=== PATIENT | female | born 1950 | race African-American/Black ===

== ENCOUNTER 2018-03-23 15:55 | Inpatient (IN) | payer MEDICARE, MEDICAID ==
[~2018-03-23] VITALS: Ht 162.6 cm; Wt 84.6 kg
[~2018-03-23 15:55] MED LIST: ASCO500C6 PO; GLIM2TAB2 PO; INSU3INS6 SUBCUT; KLUD20 PO; SERT50TA PO; TRAZ-129 PO
[2018-03-23 20:00] VITALS: BP 111/65
[2018-03-23] MEDS ORDERED: HYDROCODONE/ACETAMINOPHEN 5/325MG TABLET PO PRN (20:00)
[2018-03-23] MEDS ORDERED: POLYETHYLENE GLYCOL 3350 (17GM) 1 DOSE PACK PO PRN (20:00)
[2018-03-23] MEDS ORDERED: IPRATROPIUM/ALBUTEROL 0.5-3(2.5)MG/3ML NEB HHN PRN (20:00)
[2018-03-23] MEDS: CARVEDILOL 25MG TABLET PO SCH (21:00)
[2018-03-23 22:00] VITALS: BP 105/69
[2018-03-23] MEDS ORDERED: INSULIN GLARGINE UD 100 UNITS/ML SYR SUBCUT SCH ×2 (22:00→23:30)
[2018-03-23] MEDS: BLOOD SUGAR DIAGNOSTIC STRIP TEST SCH (22:02)
[2018-03-23] MEDS ORDERED: SACU1TAB7 MT (22:13)
[2018-03-23] MEDS ORDERED: COR25 MT (22:13)
[2018-03-24] MEDS: BLOOD SUGAR DIAGNOSTIC STRIP TEST SCH ×5 (06:52→21:35)
[2018-03-24 07:00] LABS: BASOPHILS % 2.1 % (0.0-2.0); HEMOGLOBIN. 11.5 g/dL (12.0-16.0); LYMPHOCYTES % 29.8 % (20.0-50.0); MEAN CORPUSCULAR HEMOGLOBIN 27.5 pg (28.0-32.0); MEAN CORPUSCULAR VOLUME 81.4 fL (81.0-99.0); MEAN PLATELET VOLUME 7.9 fl (7.4-10.4); MONOCYTES % 13.9 % (2.0-8.0); NEUTROPHILS % 44.2 % (40.0-76.0); PLATELET 185 x1000/uL (130-400); RED BLOOD CELL COUNT 4.18 mill/uL (4.2-5.4); RED CELL DISTRIBUTION WIDTH 19.9 % (11.6-14.6)
[2018-03-24] MEDS ORDERED: INSULIN REGULAR (HUMULIN R) 300UNITS/3ML SUBCUT SCH (07:00)
[2018-03-24 07:34] LABS: CHLORIDE 115 mEq/L (98-107)
[2018-03-24 07:41] LABS: PHOSPHORUS 3.1 mg/dL (2.5-4.9)
[2018-03-24 08:00] VITALS: BP 117/71
[2018-03-24] MEDS: INSULIN LISPRO 100 UNITS/ML SUBCUT SCH ×4 (09:00→21:00)
[2018-03-24] MEDS: POLYETHYLENE GLYCOL 3350 (17GM) 1 DOSE PACK PO SCH (09:00)
[2018-03-24] MEDS ORDERED: LOSARTAN POTASSIUM 25 MG TABLET PO SCH (09:00)
[2018-03-24] MEDS ORDERED: MAGNESIUM 2 G PREMIX 50 ML IV SCH (09:00)
[2018-03-24] MEDS ORDERED: LISINOPRIL 2.5MG TABLET PO SCH (09:00)
[2018-03-24] MEDS: ASPIRIN 81MG TABLET PO SCH (09:53)
[2018-03-24] MEDS: FUROSEMIDE 40MG TABLET PO SCH (09:53)
[2018-03-24] MEDS: SPIRONOLACTONE 25MG TABLET PO SCH (09:54)
[2018-03-24] MEDS ORDERED: INSULIN GLARGINE UD 100 UNITS/ML SYR SUBCUT SCH ×3 (10:00→22:00)
[2018-03-24] MEDS: CARVEDILOL 25MG TABLET PO SCH ×2 (11:55→21:00)
[2018-03-24] MEDS ORDERED: ACETAMINOPHEN 325MG TABLET PO PRN (14:00)
[2018-03-24] MEDS ORDERED: MAGNESIUM/ALUMINUM HYDROXIDE/SIMETHICONE 30ML UDC PO PRN (14:00)
[2018-03-24] MEDS ORDERED: ONDANSETRON HCL 4MG/2ML VIAL IV PRN (14:00)
[2018-03-24] MEDS ORDERED: OMEPRAZOLE 20MG CAPSULE EXTENDED RELEASE PO SCH (14:30)
[2018-03-24] MEDS: MINERAL OIL/PETROLATUM,WHITE CREAM 113GM JAR TOP SCH ×2 (17:00→20:04)
[2018-03-24 20:00] VITALS: BP 118/72
[2018-03-24] MEDS: OMEPRAZOLE 20MG CAPSULE EXTENDED RELEASE PO SCH (20:00)
[2018-03-24 22:44] LABS: CLARITY URINE CLEAR (CLEAR); COLOR URINE YELLOW (YELLOW); KETONES URINE NEGATIVE (NEGATIVE); LEUKOCYTE ESTERASE URINE NEGATIVE (NEGATIVE); NITRITE URINE NEGATIVE (NEGATIVE); OCCULT BLOOD URINE 3+ (NEGATIVE); PROTEIN URINE NEGATIVE (NEGATIVE)
[2018-03-25] MEDS: BLOOD SUGAR DIAGNOSTIC STRIP TEST SCH ×4 (06:15→21:43)
[2018-03-25] MEDS: OMEPRAZOLE 20MG CAPSULE EXTENDED RELEASE PO SCH (06:16)
[2018-03-25 07:04] LABS: HEMATOCRIT. 35.8 % (36.0-48.0); MEAN CORPUSCULAR HEMOGLOBIN 27.4 pg (28.0-32.0); MEAN CORPUSCULAR VOLUME 81.5 fL (81.0-99.0); PLATELET 188 x1000/uL (130-400); RED CELL DISTRIBUTION WIDTH 19.8 % (11.6-14.6)
[2018-03-25 07:16] LABS: PHOSPHORUS 3.5 mg/dL (2.5-4.9)
[2018-03-25 08:00] VITALS: BP 111/66
[2018-03-25] MEDS: FUROSEMIDE 40MG TABLET PO SCH (08:58)
[2018-03-25] MEDS: ASPIRIN 81MG TABLET PO SCH (08:59)
[2018-03-25] MEDS: POLYETHYLENE GLYCOL 3350 (17GM) 1 DOSE PACK PO SCH (09:00)
[2018-03-25] MEDS: SPIRONOLACTONE 25MG TABLET PO SCH (09:02)
[2018-03-25] MEDS: CARVEDILOL 25MG TABLET PO SCH ×2 (09:03→21:00)
[2018-03-25] MEDS: INSULIN LISPRO 100 UNITS/ML SUBCUT SCH ×4 (09:10→21:00)
[2018-03-25 09:13] LABS: PLATELET ESTIMATE NORMAL
[2018-03-25] MEDS: MINERAL OIL/PETROLATUM,WHITE CREAM 113GM JAR TOP SCH ×2 (10:06→17:24)
[2018-03-25] MEDS: SIMETHICONE 80MG TABLET CHEW PO SCH (17:00)
[2018-03-25 20:00] VITALS: BP 115/71
[2018-03-25] MEDS: HYDROCORTISONE ACETATE 25MG SUPP PR SCH (21:44)
[2018-03-25] MEDS: ENTRESTO PO SCH (21:45)
[2018-03-25] MEDS: DIPHENHYDRAMINE 25MG CAPSULE PO PRN (23:04)
[2018-03-25] MEDS: INSULIN GLARGINE UD 100 UNITS/ML SYR SUBCUT SCH (23:04)
[2018-03-26] MEDS: BLOOD SUGAR DIAGNOSTIC STRIP TEST SCH ×4 (06:46→21:20)
[2018-03-26] MEDS: INSULIN LISPRO 100 UNITS/ML SUBCUT SCH ×4 (06:46→21:00)
[2018-03-26 07:26] LABS: HEMATOCRIT. 34.6 % (36.0-48.0); HEMOGLOBIN. 11.7 g/dL (12.0-16.0); MEAN CORPUSCULAR HEMOGLOBIN 27.4 pg (28.0-32.0); MEAN CORPUSCULAR VOLUME 80.9 fL (81.0-99.0); MEAN PLATELET VOLUME 8.1 fl (7.4-10.4); PLATELET 192 x1000/uL (130-400); RED BLOOD CELL COUNT 4.28 mill/uL (4.2-5.4); RED CELL DISTRIBUTION WIDTH 20.3 % (11.6-14.6)
[2018-03-26 07:46] LABS: PHOSPHORUS 3.2 mg/dL (2.5-4.9)
[2018-03-26 08:00] VITALS: BP 113/72
[2018-03-26] MEDS: POLYETHYLENE GLYCOL 3350 (17GM) 1 DOSE PACK PO SCH (08:36)
[2018-03-26] MEDS: FUROSEMIDE 40MG TABLET PO SCH (08:37)
[2018-03-26] MEDS: ASPIRIN 81MG TABLET PO SCH (08:37)
[2018-03-26] MEDS: ENTRESTO PO SCH ×2 (08:39→20:54)
[2018-03-26] MEDS: SIMETHICONE 80MG TABLET CHEW PO SCH ×2 (08:41→18:01)
[2018-03-26] MEDS: SPIRONOLACTONE 25MG TABLET PO SCH (08:41)
[2018-03-26] MEDS: HYDROCORTISONE ACETATE 25MG SUPP PR SCH ×2 (08:42→20:55)
[2018-03-26] MEDS: CARVEDILOL 25MG TABLET PO SCH ×2 (08:42→20:55)
[2018-03-26] MEDS: MINERAL OIL/PETROLATUM,WHITE CREAM 113GM JAR TOP SCH ×2 (08:45→18:02)
[2018-03-26] MEDS: INSULIN GLARGINE UD 100 UNITS/ML SYR SUBCUT SCH ×2 (11:17→21:25)
[2018-03-26 14:57] LABS: PLATELET ESTIMATE NORMAL
[2018-03-26 20:00] VITALS: BP 115/64
[2018-03-27] MEDS: BLOOD SUGAR DIAGNOSTIC STRIP TEST SCH ×4 (06:22→21:09)
[2018-03-27] MEDS: INSULIN LISPRO 100 UNITS/ML SUBCUT SCH ×4 (06:40→21:00)
[2018-03-27 07:50] LABS: HEMATOCRIT. 34.8 % (36.0-48.0); HEMOGLOBIN. 11.6 g/dL (12.0-16.0); MEAN CORPUSCULAR HEMOGLOBIN 27.1 pg (28.0-32.0); MEAN CORPUSCULAR VOLUME 81.3 fL (81.0-99.0); MEAN PLATELET VOLUME 7.8 fl (7.4-10.4); PLATELET 200 x1000/uL (130-400); RED BLOOD CELL COUNT 4.28 mill/uL (4.2-5.4); RED CELL DISTRIBUTION WIDTH 20.1 % (11.6-14.6)
[2018-03-27 08:00] VITALS: BP 125/64
[2018-03-27 08:06] LABS: CHLORIDE 111 mEq/L (98-107)
[2018-03-27] MEDS: POLYETHYLENE GLYCOL 3350 (17GM) 1 DOSE PACK PO SCH (09:00)
[2018-03-27] MEDS: SIMETHICONE 80MG TABLET CHEW PO SCH ×3 (09:00→17:00)
[2018-03-27] MEDS: HYDROCORTISONE ACETATE 25MG SUPP PR SCH ×2 (09:00→21:00)
[2018-03-27] MEDS: CARVEDILOL 25MG TABLET PO SCH ×2 (09:34→21:02)
[2018-03-27] MEDS: ASPIRIN 81MG TABLET PO SCH (09:34)
[2018-03-27] MEDS: SPIRONOLACTONE 25MG TABLET PO SCH (09:35)
[2018-03-27] MEDS: FUROSEMIDE 40MG TABLET PO SCH (09:35)
[2018-03-27] MEDS: ENTRESTO PO SCH ×2 (09:37→21:02)
[2018-03-27] MEDS: MINERAL OIL/PETROLATUM,WHITE CREAM 113GM JAR TOP SCH ×2 (09:38→18:19)
[2018-03-27] MEDS: INSULIN GLARGINE UD 100 UNITS/ML SYR SUBCUT SCH ×2 (10:00→21:20)
[2018-03-27 12:12] LABS: PLATELET ESTIMATE NORMAL
[2018-03-27 20:00] VITALS: BP 126/72
[2018-03-28] MEDS: BLOOD SUGAR DIAGNOSTIC STRIP TEST SCH ×4 (06:15→21:00)
[2018-03-28] MEDS: INSULIN LISPRO 100 UNITS/ML SUBCUT SCH ×4 (06:42→21:00)
[2018-03-28 07:33] LABS: HEMATOCRIT. 34.3 % (36.0-48.0); HEMOGLOBIN. 11.6 g/dL (12.0-16.0); MEAN CORPUSCULAR HEMOGLOBIN 27.4 pg (28.0-32.0); MEAN CORPUSCULAR VOLUME 81.1 fL (81.0-99.0); MEAN PLATELET VOLUME 8.1 fl (7.4-10.4); PLATELET 198 x1000/uL (130-400); RED BLOOD CELL COUNT 4.23 mill/uL (4.2-5.4); RED CELL DISTRIBUTION WIDTH 20.3 % (11.6-14.6)
[2018-03-28 07:50] LABS: PHOSPHORUS 3.1 mg/dL (2.5-4.9)
[2018-03-28 08:00] VITALS: BP 127/71
[2018-03-28] MEDS ORDERED: POLYETHYLENE GLYCOL 3350 (17GM) 1 DOSE PACK PO PRN (08:45)
[2018-03-28] MEDS: SIMETHICONE 80MG TABLET CHEW PO SCH ×2 (09:00→16:24)
[2018-03-28] MEDS: HYDROCORTISONE ACETATE 25MG SUPP PR SCH ×2 (09:00→21:00)
[2018-03-28] MEDS ORDERED: FUROSEMIDE 20MG TABLET PO SCH (09:00)
[2018-03-28] MEDS ORDERED: POTASSIUM CHLORIDE 20MEQ TABLET SR PO SCH (09:00)
[2018-03-28] MEDS: MINERAL OIL/PETROLATUM,WHITE CREAM 113GM JAR TOP SCH ×2 (09:24→16:24)
[2018-03-28] MEDS: ENTRESTO PO SCH ×2 (09:24→22:34)
[2018-03-28] MEDS: CARVEDILOL 25MG TABLET PO SCH ×2 (09:25→21:00)
[2018-03-28] MEDS: SPIRONOLACTONE 25MG TABLET PO SCH (09:26)
[2018-03-28] MEDS: ASPIRIN 81MG TABLET PO SCH (09:26)
[2018-03-28] MEDS: INSULIN GLARGINE UD 100 UNITS/ML SYR SUBCUT SCH (09:37)
[2018-03-28] MEDS ORDERED: FUROSEMIDE 40MG TABLET PO SCH (10:33)
[2018-03-28 11:52] LABS: PLATELET ESTIMATE NORMAL
[2018-03-28 20:00] VITALS: BP 112/68
[2018-03-28] MEDS ORDERED: INSULIN GLARGINE UD 100 UNITS/ML SYR SUBCUT SCH (22:00)
[2018-03-29] MEDS: BLOOD SUGAR DIAGNOSTIC STRIP TEST SCH ×4 (06:45→21:00)
[2018-03-29] MEDS: INSULIN LISPRO 100 UNITS/ML SUBCUT SCH ×4 (06:46→21:00)
[2018-03-29 08:00] VITALS: BP 115/70
[2018-03-29] MEDS: HYDROCORTISONE ACETATE 25MG SUPP PR SCH ×2 (09:00→21:00)
[2018-03-29] MEDS: MINERAL OIL/PETROLATUM,WHITE CREAM 113GM JAR TOP SCH ×2 (09:00→19:35)
[2018-03-29] MEDS: SIMETHICONE 80MG TABLET CHEW PO SCH ×2 (09:00→17:00)
[2018-03-29] MEDS: INSULIN GLARGINE UD 100 UNITS/ML SYR SUBCUT SCH (10:00)
[2018-03-29] MEDS: ENTRESTO PO SCH ×2 (10:28→22:20)
[2018-03-29] MEDS: SPIRONOLACTONE 25MG TABLET PO SCH (10:30)
[2018-03-29] MEDS: ASPIRIN 81MG TABLET PO SCH (10:30)
[2018-03-29] MEDS: CARVEDILOL 25MG TABLET PO SCH ×2 (10:31→22:19)
[2018-03-29] MEDS: FUROSEMIDE 20MG TABLET PO SCH (10:33)
[2018-03-29 20:00] VITALS: BP 103/59
[2018-03-30] MEDS: BLOOD SUGAR DIAGNOSTIC STRIP TEST SCH ×4 (05:50→21:42)
[2018-03-30 07:39] LABS: HEMATOCRIT. 34.5 % (36.0-48.0); HEMOGLOBIN. 11.5 g/dL (12.0-16.0); MEAN CORPUSCULAR HEMOGLOBIN 27.1 pg (28.0-32.0); MEAN CORPUSCULAR VOLUME 81.3 fL (81.0-99.0); MEAN PLATELET VOLUME 8.2 fl (7.4-10.4); PLATELET 195 x1000/uL (130-400); RED BLOOD CELL COUNT 4.24 mill/uL (4.2-5.4); RED CELL DISTRIBUTION WIDTH 20.4 % (11.6-14.6)
[2018-03-30 08:00] VITALS: BP 128/85
[2018-03-30] MEDS: ENTRESTO PO SCH ×2 (08:56→21:43)
[2018-03-30] MEDS: FUROSEMIDE 20MG TABLET PO SCH (08:57)
[2018-03-30] MEDS: CARVEDILOL 25MG TABLET PO SCH ×2 (08:58→21:00)
[2018-03-30] MEDS: SPIRONOLACTONE 25MG TABLET PO SCH (08:59)
[2018-03-30] MEDS: MINERAL OIL/PETROLATUM,WHITE CREAM 113GM JAR TOP SCH ×2 (08:59→20:11)
[2018-03-30] MEDS: ASPIRIN 81MG TABLET PO SCH (09:00)
[2018-03-30] MEDS: SIMETHICONE 80MG TABLET CHEW PO SCH (09:00)
[2018-03-30] MEDS: INSULIN LISPRO 100 UNITS/ML SUBCUT SCH ×4 (09:00→21:00)
[2018-03-30] MEDS: HYDROCORTISONE ACETATE 25MG SUPP PR SCH (09:00)
[2018-03-30] MEDS ORDERED: HYDROCORTISONE ACETATE 25MG SUPP PR PRN (10:00)
[2018-03-30] MEDS ORDERED: SIMETHICONE 80MG TABLET CHEW PO PRN (10:00)
[2018-03-30] MEDS: INSULIN GLARGINE UD 100 UNITS/ML SYR SUBCUT SCH (10:44)
[2018-03-30] MEDS: HYDROCODONE/ACETAMINOPHEN 5/325MG TABLET PO PRN (12:51)
[2018-03-30 20:00] VITALS: BP 110/68
[2018-03-30 23:00] LABS: PLATELET ESTIMATE NORMAL
[2018-03-31] MEDS: BLOOD SUGAR DIAGNOSTIC STRIP TEST SCH ×4 (06:30→20:38)
[2018-03-31 08:00] VITALS: BP 112/69
[2018-03-31] MEDS: FUROSEMIDE 20MG TABLET PO SCH (09:46)
[2018-03-31] MEDS: CARVEDILOL 25MG TABLET PO SCH ×2 (09:46→20:38)
[2018-03-31] MEDS: ENTRESTO PO SCH ×2 (09:47→20:38)
[2018-03-31] MEDS: SPIRONOLACTONE 25MG TABLET PO SCH (09:47)
[2018-03-31] MEDS: ASPIRIN 81MG TABLET PO SCH ×2 (09:47→09:56)
[2018-03-31] MEDS: MINERAL OIL/PETROLATUM,WHITE CREAM 113GM JAR TOP SCH ×2 (09:48→16:46)
[2018-03-31] MEDS: INSULIN LISPRO 100 UNITS/ML SUBCUT SCH ×4 (09:51→20:38)
[2018-03-31] MEDS: INSULIN GLARGINE UD 100 UNITS/ML SYR SUBCUT SCH ×2 (10:35→10:43)
[2018-03-31 20:00] VITALS: BP 125/74
[2018-04-01] MEDS: BLOOD SUGAR DIAGNOSTIC STRIP TEST SCH ×4 (05:39→21:09)
[2018-04-01] MEDS: INSULIN LISPRO 100 UNITS/ML SUBCUT SCH ×4 (05:39→21:00)
[2018-04-01 07:51] LABS: HEMATOCRIT. 33.9 % (36.0-48.0); HEMOGLOBIN. 11.4 g/dL (12.0-16.0); MEAN CORPUSCULAR HEMOGLOBIN 27.4 pg (28.0-32.0); MEAN CORPUSCULAR VOLUME 81.5 fL (81.0-99.0); PLATELET 195 x1000/uL (130-400); RED BLOOD CELL COUNT 4.16 mill/uL (4.2-5.4); RED CELL DISTRIBUTION WIDTH 20.6 % (11.6-14.6)
[2018-04-01 08:00] VITALS: BP 112/62
[2018-04-01] MEDS: MINERAL OIL/PETROLATUM,WHITE CREAM 113GM JAR TOP SCH ×2 (08:36→17:18)
[2018-04-01] MEDS: ENTRESTO PO SCH ×2 (08:36→21:52)
[2018-04-01] MEDS: FUROSEMIDE 20MG TABLET PO SCH (08:36)
[2018-04-01] MEDS: CARVEDILOL 25MG TABLET PO SCH ×2 (08:42→21:51)
[2018-04-01] MEDS: SPIRONOLACTONE 25MG TABLET PO SCH (08:42)
[2018-04-01 15:07] LABS: PLATELET ESTIMATE NORMAL
[2018-04-01] MEDS: HYDROCODONE/ACETAMINOPHEN 5/325MG TABLET PO PRN (15:16)
[2018-04-01 20:28] VITALS: BP 121/77
[2018-04-01] MEDS: DIPHENHYDRAMINE 25MG CAPSULE PO PRN (22:11)
[2018-04-02] MEDS: BLOOD SUGAR DIAGNOSTIC STRIP TEST SCH ×4 (06:21→21:09)
[2018-04-02] MEDS: INSULIN LISPRO 100 UNITS/ML SUBCUT SCH ×4 (06:21→21:00)
[2018-04-02 07:13] LABS: HEMOGLOBIN 11.4 g/dL (12.0-16.0); MEAN CORPUSCULAR HEMOGLOBIN 27.2 pg (28.0-32.0); PLATELET 193 x1000/uL (130-400); RED CELL DISTRIBUTION WIDTH 21.1 % (11.6-14.6)
[2018-04-02 08:34] VITALS: BP 114/69
[2018-04-02] MEDS: FUROSEMIDE 20MG TABLET PO SCH (08:41)
[2018-04-02] MEDS: SPIRONOLACTONE 25MG TABLET PO SCH (08:42)
[2018-04-02] MEDS: ASPIRIN 81MG TABLET PO SCH (08:42)
[2018-04-02] MEDS: CARVEDILOL 25MG TABLET PO SCH ×2 (08:43→21:00)
[2018-04-02] MEDS: MINERAL OIL/PETROLATUM,WHITE CREAM 113GM JAR TOP SCH ×2 (08:43→17:33)
[2018-04-02] MEDS: ENTRESTO PO SCH ×2 (08:44→21:14)
[2018-04-02] MEDS: INSULIN GLARGINE UD 100 UNITS/ML SYR SUBCUT SCH (11:06)
[2018-04-02 20:00] VITALS: BP 113/72
[2018-04-02] MEDS ORDERED: HEMORRHOIDAL SUPP PR SCH (21:00)
[2018-04-02] MEDS: HYDROCORTISONE 1% RECTAL CREAM 30GM PR PRN ×2 (21:14→21:16)
[2018-04-02] MEDS ORDERED: HYDROCODONE/ACETAMINOPHEN 5/325MG TABLET PO PRN (21:30)
[2018-04-03 08:00] VITALS: BP 104/67
[2018-04-03 08:52] LABS: HEMATOCRIT. 33.6 % (36.0-48.0); HEMOGLOBIN. 11.2 g/dL (12.0-16.0); MEAN CORPUSCULAR VOLUME 81.2 fL (81.0-99.0); MEAN PLATELET VOLUME 8.2 fl (7.4-10.4); PLATELET 197 x1000/uL (130-400); RED BLOOD CELL COUNT 4.14 mill/uL (4.2-5.4); RED CELL DISTRIBUTION WIDTH 20.8 % (11.6-14.6)
[2018-04-03] MEDS: INSULIN LISPRO 100 UNITS/ML SUBCUT SCH ×4 (09:00→20:55)
[2018-04-03] MEDS: ASPIRIN 81MG TABLET PO SCH (09:00)
[2018-04-03 09:27] LABS: CHLORIDE 108 mEq/L (98-107)
[2018-04-03] MEDS: MINERAL OIL/PETROLATUM,WHITE CREAM 113GM JAR TOP SCH ×2 (09:45→19:08)
[2018-04-03] MEDS: FUROSEMIDE 20MG TABLET PO SCH (09:45)
[2018-04-03] MEDS: SPIRONOLACTONE 25MG TABLET PO SCH (09:46)
[2018-04-03] MEDS: ENTRESTO PO SCH ×2 (09:48→20:52)
[2018-04-03] MEDS: CARVEDILOL 25MG TABLET PO SCH ×2 (09:52→20:52)
[2018-04-03] MEDS: INSULIN GLARGINE UD 100 UNITS/ML SYR SUBCUT SCH (10:00)
[2018-04-03 10:34] LABS: PLATELET ESTIMATE NORMAL
[2018-04-03] MEDS: BLOOD SUGAR DIAGNOSTIC STRIP TEST SCH ×3 (11:15→20:52)
[2018-04-03] MEDS: PHENYLEPHRINE/SHK LV/MO/PET,WH RECTAL OINT 30GM PR SCH ×2 (18:00→23:59)
[2018-04-03 20:00] VITALS: BP 104/60
[2018-04-04] MEDS: BLOOD SUGAR DIAGNOSTIC STRIP TEST SCH ×4 (05:42→21:59)
[2018-04-04] MEDS: PHENYLEPHRINE/SHK LV/MO/PET,WH RECTAL OINT 30GM PR SCH ×3 (05:43→18:54)
[2018-04-04 06:41] LABS: BASOPHILS % 2.4 % (0.0-2.0); EOSINOPHILS % 8.6 % (0.0-5.0); HEMATOCRIT. 33.8 % (36.0-48.0); HEMOGLOBIN. 11.3 g/dL (12.0-16.0); LYMPHOCYTES % 31.1 % (20.0-50.0); MEAN CORPUSCULAR HEMOGLOBIN 27.4 pg (28.0-32.0); MEAN CORPUSCULAR VOLUME 81.6 fL (81.0-99.0); MONOCYTES % 12.6 % (2.0-8.0); NEUTROPHILS % 45.3 % (40.0-76.0); PLATELET 198 x1000/uL (130-400); RED BLOOD CELL COUNT 4.14 mill/uL (4.2-5.4); RED CELL DISTRIBUTION WIDTH 21.1 % (11.6-14.6)
[2018-04-04 08:00] VITALS: BP 110/67
[2018-04-04] MEDS: CARVEDILOL 25MG TABLET PO SCH ×2 (09:00→21:00)
[2018-04-04] MEDS: ENTRESTO PO SCH ×2 (09:00→22:00)
[2018-04-04] MEDS: ASPIRIN 81MG TABLET PO SCH (09:00)
[2018-04-04] MEDS: SPIRONOLACTONE 25MG TABLET PO SCH (09:07)
[2018-04-04] MEDS: FUROSEMIDE 80MG TABLET PO SCH (09:08)
[2018-04-04] MEDS: MINERAL OIL/PETROLATUM,WHITE CREAM 113GM JAR TOP SCH ×2 (09:10→17:31)
[2018-04-04] MEDS: INSULIN LISPRO 100 UNITS/ML SUBCUT SCH ×4 (09:21→22:01)
[2018-04-04] MEDS: INSULIN GLARGINE UD 100 UNITS/ML SYR SUBCUT SCH (11:00)
[2018-04-04 20:00] VITALS: BP 118/68
[2018-04-05] MEDS: PHENYLEPHRINE/SHK LV/MO/PET,WH RECTAL OINT 30GM PR SCH ×3 (00:27→11:44)
[2018-04-05] MEDS: BLOOD SUGAR DIAGNOSTIC STRIP TEST SCH ×2 (05:48→11:44)
[2018-04-05 08:00] VITALS: BP 124/72
[2018-04-05] MEDS: CARVEDILOL 25MG TABLET PO SCH (08:32)
[2018-04-05] MEDS: FUROSEMIDE 80MG TABLET PO SCH (08:32)
[2018-04-05] MEDS: SPIRONOLACTONE 25MG TABLET PO SCH (08:33)
[2018-04-05] MEDS: ENTRESTO PO SCH (08:33)
[2018-04-05] MEDS: MINERAL OIL/PETROLATUM,WHITE CREAM 113GM JAR TOP SCH (08:35)
[2018-04-05] MEDS: ASPIRIN 81MG TABLET PO SCH (08:36)
[2018-04-05] MEDS: INSULIN LISPRO 100 UNITS/ML SUBCUT SCH ×2 (08:41→12:35)
[2018-04-05] MEDS: INSULIN GLARGINE UD 100 UNITS/ML SYR SUBCUT SCH (09:26)
[2018-04-05 13:12] VITALS: BP 124/72
== END 2018-04-05 15:00 | disposition home health service (06) | DRG 291 ==
PROVIDERS: ADMIT Psychiatry & Neurology Neurology; ATTEND Family Medicine Adult Medicine
DX: I13.0 Hypertensive heart and chronic kidney disease with heart failure and stage 1 through stage 4 chronic kidney disease, or unspecified chronic kidney disease (principal); I50.23 Acute on chronic systolic (congestive) heart failure; E43 Unspecified severe protein-calorie malnutrition; R18.8 Other ascites; I38 Endocarditis, valve unspecified; N17.9 Acute kidney failure, unspecified; E87.0 Hyperosmolality and hypernatremia; E11.22 Type 2 diabetes mellitus with diabetic chronic kidney disease; I27.20 Pulmonary hypertension, unspecified; G62.9 Polyneuropathy, unspecified; N18.9 Chronic kidney disease, unspecified; I25.10 Atherosclerotic heart disease of native coronary artery without angina pectoris; J44.9 Chronic obstructive pulmonary disease, unspecified; R53.1 Weakness; Z60.2 Problems related to living alone; Z95.810 Presence of automatic (implantable) cardiac defibrillator; Z79.899 Other long term (current) drug therapy; Z79.4 Long term (current) use of insulin; H54.8 Legal blindness, as defined in USA; K59.00 Constipation, unspecified; K64.9 Unspecified hemorrhoids; E83.42 Hypomagnesemia; D72.1 Eosinophilia; E78.5 Hyperlipidemia, unspecified; L29.9 Pruritus, unspecified; R14.0 Abdominal distension (gaseous); E11.42 Type 2 diabetes mellitus with diabetic polyneuropathy; K74.60 Unspecified cirrhosis of liver; R59.0 Localized enlarged lymph nodes; R19.7 Diarrhea, unspecified; M13.0 Polyarthritis, unspecified; I42.0 Dilated cardiomyopathy; D63.8 Anemia in other chronic diseases classified elsewhere; Z87.891 Personal history of nicotine dependence; Z82.49 Family history of ischemic heart disease and other diseases of the circulatory system; Z80.3 Family history of malignant neoplasm of breast; N18.3 Chronic kidney disease, stage 3 (moderate); F41.9 Anxiety disorder, unspecified; F32.9 Major depressive disorder, single episode, unspecified; Z68.32 Body mass index [BMI] 32.0-32.9, adult
CPT/HCPCS: 36415; 71045; 76857; 80048; 80053; 81003; 82962; 83735; 84100; 85025; 85027; 93005; 93306; 93970; 97110; 97112; 97116; 97162; 97167; 97530; 97535; J1815; J3475; J7050; Q0163

== ENCOUNTER 2018-09-11 18:40 | Inpatient (IN) | payer MEDICARE, MEDICAID ==
[~2018-09-11] VITALS: Ht 162.6 cm; Wt 86.2 kg
[~2018-09-11 18:40] MED LIST changes: -ASCO500C6 PO; +COR25 MT; -GLIM2TAB2 PO; -INSU3INS6 SUBCUT; -KLUD20 PO; +SACU1TAB7 MT; -SERT50TA PO; -TRAZ-129 PO
[2018-09-11 20:14] LABS: BASOPHILS % 1.3 % (0.0-2.0); EOSINOPHILS % 2.6 % (0.0-5.0); HEMATOCRIT. 37.1 % (36.0-48.0); HEMOGLOBIN. 12.6 g/dL (12.0-16.0); LYMPHOCYTES % 14.5 % (20.0-50.0); MEAN CORPUSCULAR HEMOGLOBIN 30.3 pg (28.0-32.0); MEAN CORPUSCULAR VOLUME 89.4 fL (81.0-99.0); MEAN PLATELET VOLUME 8.3 fl (7.4-10.4); MONOCYTES % 12.7 % (2.0-8.0); NEUTROPHILS % 68.9 % (40.0-76.0); PLATELET 142 x1000/uL (130-400); RED BLOOD CELL COUNT 4.15 mill/uL (4.2-5.4); RED CELL DISTRIBUTION WIDTH 18.1 % (11.6-14.6)
[2018-09-11 20:16] LABS: INR 1.5; PROTHROMBIN TIME 14.7 sec (9.1-11.1)
[2018-09-11 20:17] LABS: CHLORIDE 110 mEq/L (98-107)
[2018-09-11] MEDS ORDERED: NITROGLYCERIN 0.4MG TABLET SL SL ONE (21:15)
[2018-09-11] MEDS ORDERED: ASPIRIN 81MG TABLET PO ONE (21:15)
[2018-09-11] MEDS ORDERED: ACETAMINOPHEN 325MG TABLET PO PRN (21:30)
[2018-09-11] MEDS ORDERED: DIPHENHYDRAMINE 50MG/ML VIAL IV PRN (21:30)
[2018-09-11] MEDS ORDERED: DOCUSATE SODIUM 100MG CAPSULE PO PRN (21:30)
[2018-09-11] MEDS ORDERED: ONDANSETRON HCL 4MG/2ML INJ IV PRN (21:30)
[2018-09-11] MEDS ORDERED: CLONIDINE 0.1MG TABLET PO PRN (21:30)
[2018-09-11] MEDS ORDERED: LORAZEPAM 0.5MG TABLET PO PRN (21:30)
[2018-09-11] MEDS ORDERED: HYDROCODONE/ACETAMINOPHEN 10/325MG TABLET PO PRN (21:30)
[2018-09-11] MEDS ORDERED: IPRATROPIUM/ALBUTEROL 0.5-3(2.5)MG/3ML NEB INH PRN (21:30)
[2018-09-11] MEDS ORDERED: MAGNESIUM/ALUMINUM HYDROXIDE/SIMETHICONE 30ML UDC PO PRN (21:30)
[2018-09-11] MEDS ORDERED: HYDROCODONE/ACETAMINOPHEN 5/325MG TABLET PO PRN (21:30)
[2018-09-12] MEDS ORDERED: PHENYLEPHRINE/SHK LV/MO/PET,WH RECTAL OINT 28GM PR SCH
[2018-09-12 02:28] LABS: CLARITY URINE CLEAR (CLEAR); COLOR URINE YELLOW (YELLOW); KETONES URINE NEGATIVE (NEGATIVE); LEUKOCYTE ESTERASE URINE NEGATIVE (NEGATIVE); NITRITE URINE NEGATIVE (NEGATIVE); OCCULT BLOOD URINE NEGATIVE (NEGATIVE); PROTEIN URINE NEGATIVE (NEGATIVE)
[2018-09-12 04:09] LABS: BASOPHILS % 1.1 % (0.0-2.0); EOSINOPHILS % 2.7 % (0.0-5.0); HEMATOCRIT. 36.5 % (36.0-48.0); HEMOGLOBIN. 12.4 g/dL (12.0-16.0); MEAN CORPUSCULAR HEMOGLOBIN 30.3 pg (28.0-32.0); MEAN CORPUSCULAR VOLUME 89.5 fL (81.0-99.0); MEAN PLATELET VOLUME 8.2 fl (7.4-10.4); MONOCYTES % 13.2 % (2.0-8.0); PLATELET 136 x1000/uL (130-400); RED BLOOD CELL COUNT 4.08 mill/uL (4.2-5.4); RED CELL DISTRIBUTION WIDTH 17.9 % (11.6-14.6)
[2018-09-12 04:10] LABS: CHLORIDE 111 mEq/L (98-107)
[2018-09-12 04:16] LABS: LDL CHOLESTEROL 62 mg/dL (5-100); PHOSPHORUS 3.5 mg/dL (2.5-4.9)
[2018-09-12 04:19] LABS: HDL CHOLESTEROL 31 mg/dL (40-59)
[2018-09-12 04:22] LABS: T4 FREE 1.56 ng/dL (0.76-1.46)
[2018-09-12 15:33] LABS: HEPATITIS B SURFACE ANTIGEN NEGATIVE
[2018-09-12 16:03] LABS: HEPATITIS A AB IGM NEGATIVE (NEGATIVE)
[2018-09-12] MEDS ORDERED: DEXTROSE 50% WATER 50ML SYRINGE IV PRN (19:30)
[2018-09-12] MEDS ORDERED: BLOOD SUGAR DIAGNOSTIC STRIP TEST SCH (21:00)
[2018-09-12] MEDS: INSULIN LISPRO 100 UNITS/ML SUBCUT SCH (21:00)
[2018-09-12 21:25] VITALS: BP 118/74
[2018-09-12] MEDS ORDERED: CARVEDILOL 25MG TABLET PO NR (22:00)
[2018-09-12] MEDS ORDERED: FUROSEMIDE 40MG/4ML VIAL IVP SCH (22:01)
[2018-09-12] MEDS: SPIRONOLACTONE 25MG TABLET PO SCH (23:01)
[2018-09-13] VITALS: BP 118/64
[2018-09-13] MEDS ORDERED: FURO80TA87 PO (00:48)
[2018-09-13 04:00] VITALS: BP 123/78
[2018-09-13] MEDS: BLOOD SUGAR DIAGNOSTIC STRIP TEST SCH ×4 (06:32→21:30)
[2018-09-13] MEDS: INSULIN LISPRO 100 UNITS/ML SUBCUT SCH ×4 (07:50→21:54)
[2018-09-13 07:55] LABS: BASOPHILS % 1.1 % (0.0-2.0); EOSINOPHILS % 2.6 % (0.0-5.0); HEMATOCRIT. 35.5 % (36.0-48.0); LYMPHOCYTES % 15.8 % (20.0-50.0); MEAN CORPUSCULAR HEMOGLOBIN 30.2 pg (28.0-32.0); MONOCYTES % 14.7 % (2.0-8.0); NEUTROPHILS % 65.8 % (40.0-76.0); PLATELET 127 x1000/uL (130-400); RED BLOOD CELL COUNT 3.98 mill/uL (4.2-5.4); RED CELL DISTRIBUTION WIDTH 18.1 % (11.6-14.6)
[2018-09-13 08:00] VITALS: BP 115/60
[2018-09-13] MEDS: SACUBITRIL/VALSARTAN 49MG/51MG TABLET PO SCH ×3 (09:00→21:30)
[2018-09-13] MEDS: CARVEDILOL 3.125 MG TABLET PO SCH ×2 (10:22→21:30)
[2018-09-13] MEDS: FUROSEMIDE 40MG/4ML VIAL IVP SCH (10:22)
[2018-09-13] MEDS: SPIRONOLACTONE 25MG TABLET PO SCH (10:22)
[2018-09-13] MEDS: DOCUSATE SODIUM 100MG CAPSULE PO SCH ×2 (10:23→16:58)
[2018-09-13] MEDS: INSULIN GLARGINE UD 100 UNITS/ML SYR SUBCUT SCH (10:34)
[2018-09-13] MEDS ORDERED: LIDOCAINE HCL 1% 20ML VIAL (Pyxis) INJ ONE (11:26)
[2018-09-13] MEDS ORDERED: SODIUM BICARBONATE 4% (2.4MEQ) 5ML VIAL IV ONE (11:26)
[2018-09-13 14:07] VITALS: BP 126/67
[2018-09-13 15:46] LABS: CHLORIDE 111 mEq/L (98-107)
[2018-09-13 16:00] VITALS: BP 98/60
[2018-09-13 20:00] VITALS: BP 112/61
[2018-09-13] MEDS: GUAIFENESIN 200MG/10ML SUGAR FREE UDC PO PRN (22:25)
[2018-09-14 00:55] VITALS: BP 99/62
[2018-09-14 04:00] VITALS: BP 150/69
[2018-09-14] MEDS: BLOOD SUGAR DIAGNOSTIC STRIP TEST SCH ×4 (06:31→21:00)
[2018-09-14 06:37] LABS: HEMATOCRIT. 36.3 % (36.0-48.0); HEMOGLOBIN. 12.3 g/dL (12.0-16.0); MEAN CORPUSCULAR HEMOGLOBIN 30.3 pg (28.0-32.0); MEAN CORPUSCULAR VOLUME 89.5 fL (81.0-99.0); MEAN PLATELET VOLUME 8.2 fl (7.4-10.4); PLATELET 133 x1000/uL (130-400); RED BLOOD CELL COUNT 4.06 mill/uL (4.2-5.4); RED CELL DISTRIBUTION WIDTH 18.2 % (11.6-14.6)
[2018-09-14] MEDS: INSULIN LISPRO 100 UNITS/ML SUBCUT SCH ×4 (07:50→21:31)
[2018-09-14 08:00] VITALS: BP 114/64
[2018-09-14] MEDS: CARVEDILOL 3.125 MG TABLET PO SCH ×2 (08:57→21:29)
[2018-09-14] MEDS: DOCUSATE SODIUM 100MG CAPSULE PO SCH ×2 (09:00→17:00)
[2018-09-14] MEDS: FUROSEMIDE 40MG/4ML VIAL IVP SCH (09:03)
[2018-09-14] MEDS: SPIRONOLACTONE 25MG TABLET PO SCH (09:05)
[2018-09-14 12:01] VITALS: BP 98/61
[2018-09-14] MEDS: SACUBITRIL/VALSARTAN 49MG/51MG TABLET PO SCH (12:44)
[2018-09-14] MEDS: INSULIN GLARGINE UD 100 UNITS/ML SYR SUBCUT SCH (12:50)
[2018-09-14 16:35] VITALS: BP 117/66
[2018-09-14 19:49] LABS: PLATELET ESTIMATE NORMAL
[2018-09-14 20:00] VITALS: BP 115/67
[2018-09-15] VITALS (7 sets, daily range): BP systolic 111–136; BP diastolic 67–73
[2018-09-15] MEDS: GUAIFENESIN 200MG/10ML SUGAR FREE UDC PO PRN (00:24)
[2018-09-15] MEDS: SACUBITRIL/VALSARTAN 49MG/51MG TABLET PO SCH ×4 (00:24→23:15)
[2018-09-15 06:59] LABS: BASOPHILS % 1.6 % (0.0-2.0); EOSINOPHILS % 2.7 % (0.0-5.0); HEMATOCRIT. 37.3 % (36.0-48.0); HEMOGLOBIN. 12.5 g/dL (12.0-16.0); MEAN CORPUSCULAR HEMOGLOBIN 30.1 pg (28.0-32.0); MEAN CORPUSCULAR VOLUME 89.7 fL (81.0-99.0); MEAN PLATELET VOLUME 8.4 fl (7.4-10.4); MONOCYTES % 13.8 % (2.0-8.0); NEUTROPHILS % 63.9 % (40.0-76.0); PLATELET 137 x1000/uL (130-400); RED BLOOD CELL COUNT 4.16 mill/uL (4.2-5.4); RED CELL DISTRIBUTION WIDTH 17.8 % (11.6-14.6)
[2018-09-15 07:15] LABS: CHLORIDE 111 mEq/L (98-107)
[2018-09-15] MEDS: BLOOD SUGAR DIAGNOSTIC STRIP TEST SCH ×4 (07:20→21:03)
[2018-09-15 07:30] LABS: PHOSPHORUS 3.9 mg/dL (2.5-4.9)
[2018-09-15] MEDS: DOCUSATE SODIUM 100MG CAPSULE PO SCH ×2 (09:00→16:31)
[2018-09-15] MEDS: FUROSEMIDE 40MG/4ML VIAL IVP SCH (09:23)
[2018-09-15] MEDS: CARVEDILOL 3.125 MG TABLET PO SCH ×2 (09:23→21:00)
[2018-09-15] MEDS: SPIRONOLACTONE 25MG TABLET PO SCH (09:23)
[2018-09-15] MEDS: INSULIN LISPRO 100 UNITS/ML SUBCUT SCH ×4 (09:43→21:00)
[2018-09-15] MEDS: INSULIN GLARGINE UD 100 UNITS/ML SYR SUBCUT SCH (13:57)
[2018-09-16 04:00] VITALS: BP 146/71
[2018-09-16] MEDS: BLOOD SUGAR DIAGNOSTIC STRIP TEST SCH ×2 (06:50→12:49)
[2018-09-16] MEDS: INSULIN LISPRO 100 UNITS/ML SUBCUT SCH ×2 (06:55→12:59)
[2018-09-16 08:10] VITALS: BP 111/61
[2018-09-16] MEDS: DOCUSATE SODIUM 100MG CAPSULE PO SCH (08:40)
[2018-09-16] MEDS: SACUBITRIL/VALSARTAN 49MG/51MG TABLET PO SCH (08:41)
[2018-09-16] MEDS: FUROSEMIDE 40MG/4ML VIAL IVP SCH (08:41)
[2018-09-16] MEDS: SPIRONOLACTONE 25MG TABLET PO SCH (08:41)
[2018-09-16] MEDS: CARVEDILOL 3.125 MG TABLET PO SCH (08:42)
[2018-09-16 09:28] VITALS: BP 111/65
[2018-09-16] MEDS: INSULIN GLARGINE UD 100 UNITS/ML SYR SUBCUT SCH (10:00)
[2018-09-16 12:11] VITALS: BP 111/63
== END 2018-09-16 15:10 | DRG 291 ==
LOC: ER 18:40 → ENRESERV 09-12 19:43 → 6WST 09-12 21:56
PROVIDERS: ADMIT Emergency Medicine; ATTEND Emergency Medicine
PROC: 0W9G3ZZ Drainage of Peritoneal Cavity, Percutaneous Approach (ICD-10-PCS; principal; 2018-09-13)
DX: I13.0 Hypertensive heart and chronic kidney disease with heart failure and stage 1 through stage 4 chronic kidney disease, or unspecified chronic kidney disease (principal); J96.00 Acute respiratory failure, unspecified whether with hypoxia or hypercapnia; I50.23 Acute on chronic systolic (congestive) heart failure; D68.9 Coagulation defect, unspecified; N17.9 Acute kidney failure, unspecified; I42.0 Dilated cardiomyopathy; E11.22 Type 2 diabetes mellitus with diabetic chronic kidney disease; E11.65 Type 2 diabetes mellitus with hyperglycemia; E78.5 Hyperlipidemia, unspecified; H54.8 Legal blindness, as defined in USA; I27.20 Pulmonary hypertension, unspecified; J44.9 Chronic obstructive pulmonary disease, unspecified; K59.00 Constipation, unspecified; M13.0 Polyarthritis, unspecified; M71.22 Synovial cyst of popliteal space [Baker], left knee; N18.3 Chronic kidney disease, stage 3 (moderate); E87.70 Fluid overload, unspecified; J45.909 Unspecified asthma, uncomplicated; K70.31 Alcoholic cirrhosis of liver with ascites; K76.0 Fatty (change of) liver, not elsewhere classified; D72.819 Decreased white blood cell count, unspecified; H26.9 Unspecified cataract; Z80.3 Family history of malignant neoplasm of breast; Z82.49 Family history of ischemic heart disease and other diseases of the circulatory system; Z87.891 Personal history of nicotine dependence; Z95.810 Presence of automatic (implantable) cardiac defibrillator
CPT/HCPCS: 36415; 49083; 71045; 76700; 80048; 80061; 82570; 82962; 83735; 83880; 83935; 84100; 84300; 84439; 84443; 84484; 86705; 86709; 86803; 87340; 92523; 92610; 93005; 93970; 97116; 97162; 97166; 99284; 99291; C1893; J1815; J1940; J3490

== ENCOUNTER → 2018-11-03 | Day surgery (SDC) | payer MEDICARE, MEDICAID ==
[~2018-11-03] MED LIST changes: +FURO80TA87 PO; +LIDOCAINE HCL 1% 20ML VIAL (Pyxis) INJ ONE; +SODIUM BICARBONATE 4% (2.4MEQ) 5ML VIAL IV ONE
== END | disposition home or self-care (01) ==
LOC: RAD 10:30
PROVIDERS: ATTEND Specialist
DX: K74.60 Unspecified cirrhosis of liver (principal); I50.9 Heart failure, unspecified; I42.8 Other cardiomyopathies; E11.22 Type 2 diabetes mellitus with diabetic chronic kidney disease; N18.9 Chronic kidney disease, unspecified; J44.9 Chronic obstructive pulmonary disease, unspecified; I27.20 Pulmonary hypertension, unspecified
CPT/HCPCS: 49083; J3490

== ENCOUNTER 2018-11-26 17:41 | Inpatient (IN) | payer MEDICARE, MEDICAID ==
[~2018-11-26] VITALS: Ht 162.6 cm; Wt 104.0 kg
[~2018-11-26 17:41] MED LIST changes: -LIDOCAINE HCL 1% 20ML VIAL (Pyxis) INJ ONE; -SODIUM BICARBONATE 4% (2.4MEQ) 5ML VIAL IV ONE
[2018-11-26 20:36] LABS: HEMATOCRIT. 42.6 % (36.0-48.0); HEMOGLOBIN. 13.7 g/dL (12.0-16.0); MEAN CORPUSCULAR HEMOGLOBIN 29.1 pg (28.0-32.0); MEAN CORPUSCULAR VOLUME 90.3 fL (81.0-99.0); MEAN PLATELET VOLUME 8.8 fl (7.4-10.4); PLATELET 92 x1000/uL (130-400); RED BLOOD CELL COUNT 4.72 mill/uL (4.2-5.4); RED CELL DISTRIBUTION WIDTH 20.6 % (11.6-14.6)
[2018-11-26 20:43] LABS: CHLORIDE 120 mEq/L (98-107); INR 1.6; PROTHROMBIN TIME 15.7 sec (9.1-11.1)
[2018-11-26] MEDS ORDERED: ASPIRIN 300MG SUPP PR NR (21:00)
[2018-11-26 22:25] LABS: PLATELET ESTIMATE DECREASED
[2018-11-26] MEDS ORDERED: AZITHROMYCIN 500 MG in DEXT 5% WATER 250 ML IV SCH (22:30)
[2018-11-26] MEDS ORDERED: CEFTRIAXONE 1 G PREMIX 50 ML IV ONE (22:30)
[2018-11-26] MEDS ORDERED: DEXTROSE 50% WATER 50ML SYRINGE IV PRN (22:45)
[2018-11-26] MEDS ORDERED: IPRATROPIUM/ALBUTEROL 0.5-3(2.5)MG/3ML NEB INH PRN (22:45)
[2018-11-26] MEDS ORDERED: MAGNESIUM/ALUMINUM HYDROXIDE/SIMETHICONE 30ML UDC PO PRN (22:45)
[2018-11-26] MEDS ORDERED: LEVOFLOXACIN 500MG PREMIX 100 ML IV SCH (22:45)
[2018-11-26] MEDS ORDERED: ACETAMINOPHEN 325MG TABLET PO PRN (22:45)
[2018-11-26] MEDS ORDERED: CLONIDINE 0.1MG TABLET PO PRN (22:45)
[2018-11-26 23:02] LABS: CLARITY URINE CLEAR (CLEAR); COLOR URINE DARK YELLOW (YELLOW); KETONES URINE NEGATIVE (NEGATIVE); LEUKOCYTE ESTERASE URINE NEGATIVE (NEGATIVE); NITRITE URINE NEGATIVE (NEGATIVE); OCCULT BLOOD URINE 1+ (NEGATIVE); PROTEIN URINE NEGATIVE (NEGATIVE); SPECIFIC GRAVITY URINE 1.019 (1.005-1.030)
[2018-11-27] VITALS (9 sets, daily range): BP systolic 98–127; BP diastolic 58–76
[2018-11-27] MEDS ORDERED: LEVOFLOXACIN 500MG PREMIX 100 ML IV NR (03:30)
[2018-11-27 06:05] LABS: HEMATOCRIT. 40.6 % (36.0-48.0); HEMOGLOBIN. 13.2 g/dL (12.0-16.0); MEAN CORPUSCULAR HEMOGLOBIN 28.8 pg (28.0-32.0); MEAN CORPUSCULAR VOLUME 88.8 fL (81.0-99.0); MEAN PLATELET VOLUME 9.1 fl (7.4-10.4); PLATELET 94 x1000/uL (130-400); RED BLOOD CELL COUNT 4.57 mill/uL (4.2-5.4); RED CELL DISTRIBUTION WIDTH 20.1 % (11.6-14.6)
[2018-11-27 06:21] LABS: PHOSPHORUS 3.6 mg/dL (2.5-4.9)
[2018-11-27 06:26] LABS: T4 FREE 1.27 ng/dL (0.76-1.46)
[2018-11-27 07:14] LABS: NUCLEATED RED BLOOD CELLS 1 /100 WBC; PLATELET ESTIMATE DECREASED
[2018-11-27] MEDS ORDERED: DOCUSATE SODIUM 100MG CAPSULE PO SCH (09:00)
[2018-11-27] MEDS: BLOOD SUGAR DIAGNOSTIC STRIP TEST SCH ×3 (11:41→21:43)
[2018-11-27] MEDS: INSULIN LISPRO 100 UNITS/ML SUBCUT SCH ×3 (12:12→21:00)
[2018-11-27] MEDS: FUROSEMIDE 40MG/4ML VIAL IVP SCH (14:00)
[2018-11-27 14:29] LABS: BG BASE EXCESS -10.9 mmol/L (-2.0-2.0); BG CARBOXYHEMOGLOBIN 0.8 % (0.5-1.5); BG DEOXYHEMOGLOBIN 12.3 % (0.0-5.0); BG HCO3 ACT 14.8 mmol/L (22.0-26.0); BG METHEMOGLOBIN 0.3 % (0.0-1.5); BG OXYGEN SATURATION 87.6 % (92.0-98.5); BG OXYHEMOGLOBIN 86.6 % (94.0-97.0); BG PCO2 32.9 mmHg (35.0-45.0); BG PH 7.272 (7.350-7.450); BG PO2 56.8 mmHg (75.0-100.0); BG SAMPLE SITE RIGHT RADIAL; BG TOTAL HEMOGLOBIN 12.8 g/dL (12.0-18.0); BG VENT MODE MASK - VENTI
[2018-11-27] MEDS ORDERED: ENOXAPARIN 40MG/0.4ML SYR SUBCUT SCH (14:30)
[2018-11-27] MEDS: IPRATROPIUM/ALBUTEROL 0.5-3(2.5)MG/3ML NEB HHN SCH ×2 (15:57→21:25)
[2018-11-27 18:12] LABS: BG BASE EXCESS -10.3 mmol/L (-2.0-2.0); BG CARBOXYHEMOGLOBIN 0.5 % (0.5-1.5); BG METHEMOGLOBIN 0.1 % (0.0-1.5); BG OXYHEMOGLOBIN 96.4 % (94.0-97.0); BG PH 7.254 (7.350-7.450); BG PO2 106.1 mmHg (75.0-100.0); BG SAMPLE SITE RIGHT RADIAL; BG TOTAL HEMOGLOBIN 12.8 g/dL (12.0-18.0); BG VENT MODE MASK - NRB
[2018-11-27] MEDS: LACTULOSE 20G/30ML UDC PO SCH (21:43)
[2018-11-28] VITALS (18 sets, daily range): BP systolic 89–115; BP diastolic 54–71
[2018-11-28] MEDS: IPRATROPIUM/ALBUTEROL 0.5-3(2.5)MG/3ML NEB HHN SCH ×6 (00:39→20:30)
[2018-11-28] MEDS: LEVOFLOXACIN 250MG PREMIX 50 ML IV SCH (05:53)
[2018-11-28] MEDS: LACTULOSE 20G/30ML UDC PO SCH ×3 (05:54→21:13)
[2018-11-28 07:00] LABS: INR 1.6; PROTHROMBIN TIME 15.5 sec (9.1-11.1)
[2018-11-28 07:07] LABS: HEMATOCRIT. 38.5 % (36.0-48.0); HEMOGLOBIN. 12.6 g/dL (12.0-16.0); MEAN CORPUSCULAR VOLUME 88.4 fL (81.0-99.0); MEAN PLATELET VOLUME 8.7 fl (7.4-10.4); PLATELET 86 x1000/uL (130-400); RED BLOOD CELL COUNT 4.36 mill/uL (4.2-5.4); RED CELL DISTRIBUTION WIDTH 19.3 % (11.6-14.6)
[2018-11-28 07:10] LABS: CHLORIDE 121 mEq/L (98-107)
[2018-11-28 07:16] LABS: PHOSPHORUS 3.4 mg/dL (2.5-4.9)
[2018-11-28] MEDS: INSULIN LISPRO 100 UNITS/ML SUBCUT SCH ×2 (08:00→18:00)
[2018-11-28] MEDS: BLOOD SUGAR DIAGNOSTIC STRIP TEST SCH ×3 (08:22→18:52)
[2018-11-28] MEDS: FUROSEMIDE 40MG/4ML VIAL IVP SCH (08:39)
[2018-11-28] MEDS ORDERED: SPIRONOLACTONE 25MG TABLET PO SCH (10:00)
[2018-11-28] MEDS: METOLAZONE 2.5MG TABLET PO SCH (10:02)
[2018-11-28 11:51] LABS: PLATELET ESTIMATE DECREASED
[2018-11-28 12:34] LABS: T4 FREE 1.24 ng/dL (0.76-1.46)
[2018-11-28 13:03] LABS: VITAMIN B12 SERUM > 2000.0 pg/mL (211-911)
[2018-11-28] MEDS: PANTOPRAZOLE SODIUM 40 MG/VIAL IV SCH (13:19)
[2018-11-28 15:13] LABS: BG BASE EXCESS -7.4 mmol/L (-2.0-2.0); BG CARBOXYHEMOGLOBIN 0.7 % (0.5-1.5); BG DEOXYHEMOGLOBIN 6.7 % (0.0-5.0); BG FRACTION INSPIRED OXYGEN 100; BG HCO3 ACT 16.5 mmol/L (22.0-26.0); BG METHEMOGLOBIN 0.1 % (0.0-1.5); BG OXYGEN SATURATION 93.2 % (92.0-98.5); BG OXYHEMOGLOBIN 92.5 % (94.0-97.0); BG PCO2 28.9 mmHg (35.0-45.0); BG PH 7.374 (7.350-7.450); BG SAMPLE SITE RIGHT RADIAL; BG TOTAL HEMOGLOBIN 12.8 g/dL (12.0-18.0); BG VENT MODE MASK - NRB
[2018-11-28] MEDS: BUDESONIDE 0.5MG/2ML NEB HHN SCH (20:30)
[2018-11-28] MEDS ORDERED: AMLODIPINE 2.5MG TABLET PO SCH (21:00)
[2018-11-28] MEDS: RIFAXIMIN 550 MG TABLET PO SCH (21:13)
[2018-11-29] VITALS (17 sets, daily range): BP systolic 98–115; BP diastolic 55–69
[2018-11-29] MEDS: IPRATROPIUM/ALBUTEROL 0.5-3(2.5)MG/3ML NEB HHN SCH ×6 (00:14→20:38)
[2018-11-29] MEDS: DEXTROSE 50% WATER 50ML SYRINGE IV PRN ×3 (00:49→18:43)
[2018-11-29] MEDS: BLOOD SUGAR DIAGNOSTIC STRIP TEST SCH ×4 (00:53→18:39)
[2018-11-29] MEDS: LEVOFLOXACIN 250MG PREMIX 50 ML IV SCH (04:56)
[2018-11-29] MEDS: INSULIN LISPRO 100 UNITS/ML SUBCUT SCH ×4 (06:00→18:00)
[2018-11-29] MEDS: LACTULOSE 20G/30ML UDC PO SCH ×4 (06:49→22:04)
[2018-11-29 06:53] LABS: HEMATOCRIT. 37.9 % (36.0-48.0); HEMOGLOBIN. 12.4 g/dL (12.0-16.0); MEAN CORPUSCULAR HEMOGLOBIN 29.1 pg (28.0-32.0); MEAN CORPUSCULAR VOLUME 88.7 fL (81.0-99.0); MEAN PLATELET VOLUME 9.1 fl (7.4-10.4); PLATELET 92 x1000/uL (130-400); RED BLOOD CELL COUNT 4.27 mill/uL (4.2-5.4); RED CELL DISTRIBUTION WIDTH 18.9 % (11.6-14.6)
[2018-11-29 07:39] LABS: PHOSPHORUS 3.3 mg/dL (2.5-4.9)
[2018-11-29] MEDS: RIFAXIMIN 550 MG TABLET PO SCH ×2 (09:00→22:04)
[2018-11-29] MEDS: METOLAZONE 2.5MG TABLET PO SCH (09:00)
[2018-11-29] MEDS ORDERED: FUROSEMIDE 20MG/2ML VIAL IV SCH (09:00)
[2018-11-29] MEDS: BUDESONIDE 0.5MG/2ML NEB HHN SCH ×2 (09:20→20:38)
[2018-11-29] MEDS: PANTOPRAZOLE SODIUM 40 MG/VIAL IV SCH (10:14)
[2018-11-29] MEDS ORDERED: ONDANSETRON HCL 4MG/2ML INJ IV PRN (11:45)
[2018-11-29] MEDS: LACTULOSE 300 ML in WATER FOR IRRIGATION,STERILE 700 ML IR SCH ×2 (15:51→20:00)
[2018-11-29 17:03] LABS: PLATELET ESTIMATE DECREASED
[2018-11-29] MEDS: METRONIDAZOLE 500 MG PREMIX 100 ML IV SCH (19:22)
[2018-11-29] MEDS: CEFEPIME 500 MG in DEXTROSE 5% WATER 50 ML IV SCH (19:22)
[2018-11-30] VITALS (13 sets, daily range): BP systolic 104–124; BP diastolic 57–74
[2018-11-30] MEDS: IPRATROPIUM/ALBUTEROL 0.5-3(2.5)MG/3ML NEB HHN SCH ×6 (01:22→20:55)
[2018-11-30] MEDS: LACTULOSE 300 ML in WATER FOR IRRIGATION,STERILE 700 ML IR SCH ×4 (01:45→21:56)
[2018-11-30] MEDS: METRONIDAZOLE 500 MG PREMIX 100 ML IV SCH ×3 (02:15→17:30)
[2018-11-30] MEDS: LACTULOSE 20G/30ML UDC PO SCH ×4 (05:30→23:24)
[2018-11-30] MEDS: BLOOD SUGAR DIAGNOSTIC STRIP TEST SCH ×4 (06:00→17:14)
[2018-11-30] MEDS: INSULIN LISPRO 100 UNITS/ML SUBCUT SCH ×4 (06:00→17:14)
[2018-11-30 07:14] LABS: HEMATOCRIT. 38.6 % (36.0-48.0); HEMOGLOBIN. 12.9 g/dL (12.0-16.0); MEAN CORPUSCULAR HEMOGLOBIN 29.3 pg (28.0-32.0); MEAN CORPUSCULAR VOLUME 88.2 fL (81.0-99.0); MEAN PLATELET VOLUME 8.7 fl (7.4-10.4); PLATELET 94 x1000/uL (130-400); RED BLOOD CELL COUNT 4.38 mill/uL (4.2-5.4); RED CELL DISTRIBUTION WIDTH 18.8 % (11.6-14.6)
[2018-11-30 07:38] LABS: PHOSPHORUS 3.4 mg/dL (2.5-4.9)
[2018-11-30] MEDS: METOLAZONE 2.5MG TABLET PO SCH (08:50)
[2018-11-30] MEDS: PANTOPRAZOLE SODIUM 40 MG/VIAL IV SCH (08:50)
[2018-11-30] MEDS: RIFAXIMIN 550 MG TABLET PO SCH ×2 (08:50→21:56)
[2018-11-30] MEDS: DEXTROSE 5% WATER 1,000 ML IV SCH (09:53)
[2018-11-30 11:22] LABS: BG BASE EXCESS -7.6 mmol/L (-2.0-2.0); BG BILEVEL POS AIRWAY PRESSURE 15/5; BG CARBOXYHEMOGLOBIN 1.3 % (0.5-1.5); BG FRACTION INSPIRED OXYGEN 50; BG HCO3 ACT 16.9 mmol/L (22.0-26.0); BG METHEMOGLOBIN 0.2 % (0.0-1.5); BG OXYGEN SATURATION 95.9 % (92.0-98.5); BG OXYHEMOGLOBIN 94.5 % (94.0-97.0); BG PCO2 31.3 mmHg (35.0-45.0); BG PO2 85.2 mmHg (75.0-100.0); BG SAMPLE SITE RIGHT BRACHIAL; BG TOTAL HEMOGLOBIN 12.9 g/dL (12.0-18.0); BG VENT MODE MASK - BIPAP; BG VENT RATE 12 set
[2018-11-30 12:14] LABS: PLATELET ESTIMATE DECREASED
[2018-11-30] MEDS: METOCLOPRAMIDE HCL 10MG/2ML VIAL IV SCH ×3 (12:33→23:25)
[2018-11-30] MEDS: CEFEPIME 500 MG in DEXTROSE 5% WATER 50 ML IV SCH (17:51)
[2018-11-30] MEDS: BUDESONIDE 0.5MG/2ML NEB HHN SCH (20:54)
[2018-11-30] MEDS: HEMORRHOIDAL SUPP PR SCH (21:56)
[2018-12-01] VITALS (12 sets, daily range): BP systolic 103–117; BP diastolic 65–79
[2018-12-01] MEDS: IPRATROPIUM/ALBUTEROL 0.5-3(2.5)MG/3ML NEB HHN SCH ×6 (00:53→22:08)
[2018-12-01] MEDS: LACTULOSE 300 ML in WATER FOR IRRIGATION,STERILE 700 ML IR SCH (02:15)
[2018-12-01] MEDS: METRONIDAZOLE 500 MG PREMIX 100 ML IV SCH ×3 (02:19→18:27)
[2018-12-01] MEDS: DEXTROSE 5% WATER 1,000 ML IV SCH ×2 (04:15→23:46)
[2018-12-01] MEDS: METOCLOPRAMIDE HCL 10MG/2ML VIAL IV SCH ×5 (06:00→23:43)
[2018-12-01] MEDS: BLOOD SUGAR DIAGNOSTIC STRIP TEST SCH ×5 (06:00→23:43)
[2018-12-01] MEDS: INSULIN LISPRO 100 UNITS/ML SUBCUT SCH ×4 (06:00→18:00)
[2018-12-01] MEDS: LACTULOSE 20G/30ML UDC PO SCH ×4 (06:15→23:43)
[2018-12-01 07:30] LABS: BASOPHILS % 0.8 % (0.0-2.0); EOSINOPHILS % 2.6 % (0.0-5.0); HEMATOCRIT. 40.2 % (36.0-48.0); HEMOGLOBIN. 13.1 g/dL (12.0-16.0); MEAN CORPUSCULAR HEMOGLOBIN 29.1 pg (28.0-32.0); MEAN CORPUSCULAR VOLUME 88.8 fL (81.0-99.0); MEAN PLATELET VOLUME 8.6 fl (7.4-10.4); MONOCYTES % 13.3 % (2.0-8.0); NEUTROPHILS % 72.3 % (40.0-76.0); PLATELET 91 x1000/uL (130-400); RED BLOOD CELL COUNT 4.52 mill/uL (4.2-5.4); RED CELL DISTRIBUTION WIDTH 19.7 % (11.6-14.6)
[2018-12-01 07:42] LABS: CHLORIDE 122 mEq/L (98-107)
[2018-12-01] MEDS: BUDESONIDE 0.5MG/2ML NEB HHN SCH (08:29)
[2018-12-01] MEDS: PANTOPRAZOLE SODIUM 40 MG/VIAL IV SCH (08:51)
[2018-12-01] MEDS: METOLAZONE 2.5MG TABLET PO SCH (08:52)
[2018-12-01] MEDS: RIFAXIMIN 550 MG TABLET PO SCH ×2 (08:52→21:35)
[2018-12-01] MEDS: HEMORRHOIDAL SUPP PR SCH ×2 (09:05→21:35)
[2018-12-01] MEDS: CEFEPIME 500 MG in DEXTROSE 5% WATER 50 ML IV SCH (18:27)
[2018-12-02] VITALS (12 sets, daily range): BP systolic 99–125; BP diastolic 66–83
[2018-12-02] MEDS: INSULIN LISPRO 100 UNITS/ML SUBCUT SCH ×4 (00:12→17:35)
[2018-12-02] MEDS: IPRATROPIUM/ALBUTEROL 0.5-3(2.5)MG/3ML NEB HHN SCH ×6 (02:11→20:51)
[2018-12-02] MEDS: METRONIDAZOLE 500 MG PREMIX 100 ML IV SCH (02:52)
[2018-12-02] MEDS: BLOOD SUGAR DIAGNOSTIC STRIP TEST SCH ×3 (06:00→17:35)
[2018-12-02] MEDS: LACTULOSE 20G/30ML UDC PO SCH ×3 (07:08→17:34)
[2018-12-02 08:48] LABS: BASOPHILS % 0.8 % (0.0-2.0); EOSINOPHILS % 3.6 % (0.0-5.0); HEMATOCRIT. 39.8 % (36.0-48.0); HEMOGLOBIN. 13.1 g/dL (12.0-16.0); LYMPHOCYTES % 11.5 % (20.0-50.0); MEAN CORPUSCULAR HEMOGLOBIN 29.2 pg (28.0-32.0); MEAN CORPUSCULAR VOLUME 88.5 fL (81.0-99.0); MEAN PLATELET VOLUME 8.2 fl (7.4-10.4); MONOCYTES % 14.2 % (2.0-8.0); NEUTROPHILS % 69.9 % (40.0-76.0); PLATELET 95 x1000/uL (130-400); RED BLOOD CELL COUNT 4.49 mill/uL (4.2-5.4); RED CELL DISTRIBUTION WIDTH 19.8 % (11.6-14.6)
[2018-12-02] MEDS: METOLAZONE 2.5MG TABLET PO SCH (09:14)
[2018-12-02] MEDS: HEMORRHOIDAL SUPP PR SCH ×2 (09:14→21:27)
[2018-12-02] MEDS: PANTOPRAZOLE SODIUM 40 MG/VIAL IV SCH (09:14)
[2018-12-02] MEDS: RIFAXIMIN 550 MG TABLET PO SCH ×2 (09:14→21:26)
[2018-12-02] MEDS: METOCLOPRAMIDE HCL 10MG/2ML VIAL IV SCH ×3 (09:14→17:34)
[2018-12-02] MEDS: METRONIDAZOLE 500MG TABLET PO SCH ×2 (09:17→17:35)
[2018-12-02 09:37] LABS: PHOSPHORUS 2.8 mg/dL (2.5-4.9)
[2018-12-02] MEDS ORDERED: CEFEPIME 1,000 MG in DEXTROSE 5% WATER 50 ML IV SCH ×2 (15:03→18:00)
[2018-12-02] MEDS: DEXTROSE 5% WATER 1,000 ML IV SCH (22:35)
[2018-12-03] VITALS (11 sets, daily range): BP systolic 97–130; BP diastolic 59–89
[2018-12-03] MEDS: BLOOD SUGAR DIAGNOSTIC STRIP TEST SCH ×4 (00:33→17:55)
[2018-12-03] MEDS: IPRATROPIUM/ALBUTEROL 0.5-3(2.5)MG/3ML NEB HHN SCH ×6 (00:39→15:42)
[2018-12-03] MEDS: METOCLOPRAMIDE HCL 10MG/2ML VIAL IV SCH ×4 (00:44→17:44)
[2018-12-03] MEDS: METRONIDAZOLE 500MG TABLET PO SCH ×3 (02:30→17:44)
[2018-12-03] MEDS: INSULIN LISPRO 100 UNITS/ML SUBCUT SCH ×4 (06:00→17:55)
[2018-12-03 09:02] LABS: HEMATOCRIT. 40.1 % (36.0-48.0); HEMOGLOBIN. 13.1 g/dL (12.0-16.0); MEAN CORPUSCULAR VOLUME 88.9 fL (81.0-99.0); MEAN PLATELET VOLUME 7.9 fl (7.4-10.4); PLATELET 94 x1000/uL (130-400); RED BLOOD CELL COUNT 4.51 mill/uL (4.2-5.4); RED CELL DISTRIBUTION WIDTH 19.2 % (11.6-14.6)
[2018-12-03] MEDS: METOLAZONE 2.5MG TABLET PO SCH (09:30)
[2018-12-03] MEDS: LACTULOSE 20G/30ML UDC PO SCH ×2 (09:30→17:44)
[2018-12-03] MEDS: PANTOPRAZOLE SODIUM 40 MG/VIAL IV SCH (09:30)
[2018-12-03] MEDS: RIFAXIMIN 550 MG TABLET PO SCH (09:30)
[2018-12-03] MEDS: HEMORRHOIDAL SUPP PR SCH (09:30)
[2018-12-03 10:23] LABS: INR 1.6; PROTHROMBIN TIME 15.6 sec (9.1-11.1)
[2018-12-03 16:20] LABS: PLATELET ESTIMATE DECREASED
== END 2018-12-03 19:50 | DRG 177 ==
LOC: ER 18:03 → 5EST 22:34 → EDBEDREQ 22:40 → ENRESERV 11-27 08:18 → 5EST 11-27 10:40
PROVIDERS: ADMIT Family Medicine Adult Medicine; ATTEND Family Medicine Adult Medicine
PROC: 5A09457 Assistance with Respiratory Ventilation, 24-96 Consecutive Hours, Continuous Positive Airway Pressure (ICD-10-PCS; 2018-11-28)
PROC: 4A00X4Z Measurement of Central Nervous Electrical Activity, External Approach (ICD-10-PCS; principal; 2018-11-29)
PROC: 5A09357 Assistance with Respiratory Ventilation, Less than 24 Consecutive Hours, Continuous Positive Airway Pressure (ICD-10-PCS; 2018-12-02)
PROC: 5A09357 Assistance with Respiratory Ventilation, Less than 24 Consecutive Hours, Continuous Positive Airway Pressure (ICD-10-PCS; 2018-12-03)
DX: J69.0 Pneumonitis due to inhalation of food and vomit (principal); J96.01 Acute respiratory failure with hypoxia; G92 Toxic encephalopathy; E43 Unspecified severe protein-calorie malnutrition; I50.23 Acute on chronic systolic (congestive) heart failure; N17.9 Acute kidney failure, unspecified; I13.0 Hypertensive heart and chronic kidney disease with heart failure and stage 1 through stage 4 chronic kidney disease, or unspecified chronic kidney disease; D68.9 Coagulation defect, unspecified; E87.0 Hyperosmolality and hypernatremia; E87.1 Hypo-osmolality and hyponatremia; E87.4 Mixed disorder of acid-base balance; I42.0 Dilated cardiomyopathy; Q21.1 Atrial septal defect; E11.22 Type 2 diabetes mellitus with diabetic chronic kidney disease; D64.9 Anemia, unspecified; D69.6 Thrombocytopenia, unspecified; D72.819 Decreased white blood cell count, unspecified; E11.649 Type 2 diabetes mellitus with hypoglycemia without coma; F41.9 Anxiety disorder, unspecified; G89.29 Other chronic pain; I95.9 Hypotension, unspecified; M54.5 Low back pain; E66.01 Morbid (severe) obesity due to excess calories; J44.9 Chronic obstructive pulmonary disease, unspecified; H54.8 Legal blindness, as defined in USA; I08.1 Rheumatic disorders of both mitral and tricuspid valves; I27.20 Pulmonary hypertension, unspecified; K70.31 Alcoholic cirrhosis of liver with ascites; K72.90 Hepatic failure, unspecified without coma; L89.159 Pressure ulcer of sacral region, unspecified stage; N18.3 Chronic kidney disease, stage 3 (moderate); R13.10 Dysphagia, unspecified; Z95.810 Presence of automatic (implantable) cardiac defibrillator; Z91.040 Latex allergy status; Z79.4 Long term (current) use of insulin; Z79.899 Other long term (current) drug therapy; Z82.49 Family history of ischemic heart disease and other diseases of the circulatory system; Z68.39 Body mass index [BMI] 39.0-39.9, adult
CPT/HCPCS: 36415; 36600; 71045; 74018; 76604; 76705; 80048; 82140; 82375; 82607; 82746; 82805; 82962; 83036; 83605; 83735; 83880; 84100; 84134; 84439; 84443; 84481; 84484; 92610; 93005; 93306; 93970; 94640; 94660; 96374; 97162; 97164; 97166; 97167; 99285; A6261; C9113; J0456; J0692; J0696; J1650; J1815; J1940; J1956; J2765; J3490; J7060; J7070; J7620; J7626; A4315